=== PATIENT | female | born 1960 | race Caucasian/White ===

== ENCOUNTER 2018-08-07 01:37 | Emergency (ER) | END 2018-08-07 04:15 | disposition home or self-care (01) ==

== ENCOUNTER 2018-08-12 13:04 | Emergency (ER) | END 2018-08-12 19:40 | disposition home or self-care (01) ==

== ENCOUNTER 2018-08-26 19:57 | Emergency (ER) | END 2018-08-26 23:30 | disposition home or self-care (01) ==